=== PATIENT | female | born 1970 | race Caucasian/White ===

== ENCOUNTER 2019-04-02 07:02 | Emergency (ER) | payer BC ==
--- NOTE | 2019-04-02 07:24 | UC ---
Throat Pain/Nasal Lev HPI - HPI Summary HPI Summary: Patient presents to urgent care stating progressive the last 4 days she has had chest congestion, productive of yellow sputum. States she's been feeling febrile but has not had a documented fever. Patient denies nausea vomiting. Patient states she has a sore throat or ears feel congested. Patient has taken Motrin, but not has not taken any other medication to treat her symptoms. Patient states she feels taken she's not sleeping well related to the cough. Patient's when she lays down she feels like she gets tightness in her throat related to the cough as well as some postnasal drip. Patient's daughter has strep throat approximately 10 days ago. Patient children have been sick at home and she works at [employer] so she's also been exposed to little with sickness. Patient's medications review this visit. Patient states she is not . - History of Current Complaint Chief Complaint: UCRespiratory Stated Complaint: CONGESTION EAR PAIN SORE THROAT COUGH Time Seen by Provider: 04/02/19 07:23 Hx Obtained From: Patient Hx Last Menstrual Period: last month ?: No Severity: Moderate Pain Intensity: 5 Pain Scale Used: 0-10 Numeric - Allergies/Home Medications Allergies/Adverse Reactions: Allergies Allergy/AdvReac Type Severity Reaction Status Date / Time erythromycin base Allergy Vomiting Verified 04/02/19 07:13 Penicillins Allergy Vomiting Verified 04/02/19 07:13 Home Medications: Home Medications ALPRAZolam [Xanax] 0.5 tab PO DAILY PRN 04/02/19 [History Confirmed 04/02/19] Acetaminophen [Tylophen] 1,000 mg PO Q6HR PRN 04/02/19 [History Confirmed ] Propranolol HCl 20 mg PO BID 04/02/19 [History Confirmed 04/02/19] PMH/Surg Hx/FS Hx/Imm Hx Previously Healthy: Yes Cardiovascular History: Hypertension - Surgical History Surgical History: Yes Surgery Procedure, Year, and Place: L Knee arthroscopy 1983 September 2004 - Family History Known Family History: Positive: Hypertension - Social History Alcohol Use: Rare Substance Use Type: Prescribed Smoking Status (MU): Never Smoked Tobacco - Immunization History Most Recent Influenza Vaccination: fall 2015 Review of Systems All Other Systems Reviewed And Are Negative: Yes Constitutional: Positive: Fever, Fatigue ENT: Positive: Sore Throat, Sinus Congestion Respiratory: Positive: Cough Cardiovascular: Positive: Negative Physical Exam - Summary Physical Exam Summary: Vital Signs Reviewed: Yes A+Ox3, tired appearing, coarse cough Eyes: Conjunctiva Clear, CELESTE. EOM intact and full ENT: Hearing grossly normal right TM - obstructed by cerumen, left TM - mild fluid, turbinates boggy + PND , mmoist, uvula midline, no exudate, mild erythema Neck: Positive: Supple, no LA Respiratory: Positive: No respiratory distress, No accessory muscle use coarse cough, + end exp wheeze, no retractions Cardiovascular: RRR nl s1, s2 no m/r CBT <2 sec abd soft + BS nt/nd no guarding, no distension Musculoskeletal Exam: CLEMENTS x 4 without difficulty Strength Intact, ROM Intact Neurological: Positive: Alert, + sensation throughout Psychological: Positive: Normal Response To examiner Skin: Positive: no rash, no ecchymosis Triage Information Reviewed: Yes Vital Signs: Initial Vital Signs Temp 97.6 F 04/02/19 07:08 Pulse 60 04/02/19 07:08 Resp 18 04/02/19 07:08 BP 142/102 04/02/19 07:08 Pulse Ox 99 04/02/19 07:08 Re-Evaluation - Re-Evaluation First Eval Comment: Patient little shaky after the neb. States that her breathing feels better. She feels more open. Coughing is decreased. Lung sounds are now clear without wheezing. Spent time examined patient. Patient given water and juice and crackers and her shakiness improved. Reviewed plan of care with patient. We'll start albuterol with a spacer, prednisone 20 mg a day risks discussed, and Kelly Michel. We'll send a prescription for antibiotics and instructed patient to start if her symptoms persist over the next 24-48 hours. Secretion precautions discussed. Humidified air. Advised patient to avoid decongestants. Patient states understanding, and plan. Throat Pain/Nasal Course/Dx - Course Course Of Treatment: Patient presents to urgent care where several days progressive cough productive of yellow sputum sinus congestion postnasal drip and sore throat. Patient states she feels fatigued she's not sleeping related to cough. Patient's taken Motrin Tylenol but no other Medications. On exam vital signs are elevated blood pressure. Patient does have a history of hypertension and did not take her medicine this morning. Patient is not taking any decongestant. On exam patient right ear impacted with cerumen. Patient declined catheter irrigation to remove this. Left ear shows some mild fluid. Patient's turbinates are inflamed and boggy. Patient has had postnasal drip and a coarse sounding cough. We'll check for strep as her daughter had strep as well as given a DuoNeb and reassessed. Patient comfortable with him and plan. We'll reassess. - Differential Dx/Diagnosis Provider Diagnosis: Acute bronchitis, Upper respiratory infection Discharge ED - Sign-Out/Discharge Documenting (check all that apply): Patient Departure All imaging exams completed and their final reports reviewed: No Studies - Discharge Plan Condition: Stable Disposition: HOME Prescriptions: Albuterol HFA INHALER* [Ventolin HFA Inhaler*] 2 puff INH Q4H PRN #1 mdi PRN Reason: wheeze Benzonatate CAP* [Tessalon 100 MG CAP*] 100 mg PO TID PRN #21 cap PRN Reason: Cough DOXYcycline CAP(*) [DOXYcycline 100MG CAP(*)] 100 mg PO BID #20 cap Inhaler, Assist Devices [Aerochamber Mv] 1 each PO Q4HR #1 spacer predniSONE [Prednisone 20 MG TAB] 20 mg PO DAILY #5 tablet Patient Education Materials: Upper Respiratory Infection (ED), Acute Bronchitis (ED) Referrals: Walter Farrar MD [Primary Care Provider] - Additional Instructions: -Use your albuterol puffer - 2 puffs every 4 hours for the next 2 days - then as needed - take prednisone daily as prescribed -Stay well hydrated - avoid excess caffeine and all alcohol - eat regular, healthy meals - - humidify the air in the room where you sleep - boil water, run a hot steam shower, vaporizer, cups of water by heat register -If your symptoms persist, take antibiotics exactly as prescribed until gone - okay to take over the counter medication for your cough - it is recommended you AVOID decongestants (pseudephederine, sudafed, phenylepherine) as these can increase blood pressure -- These infections are spread by secretions - do NOT share eating or drinking utensils - clean items you share with other people such as cell phones, computer mouse, TV remote, computer tablets,etc.. Once you have been antibiotics for 2 days, change your toothbrush and your pillowcase. -Contact your doctor to arrange a follow-up appointment this week. Call your doctor, return here or go to the emergency department with any questions or concerns - Billing Disposition and Condition Condition: STABLE Disposition: Home
[2019-04-02] MEDS ORDERED: Albuterol/Ipratropium NEB.SOL* Albuterol 2.5 MG/Ipratropium 0.5 MG 3 ML INH ONE (07:31)
[2019-04-02 07:56] VITALS: BP 159/77
== END 2019-04-02 08:30 | disposition home or self-care (01) ==
LOC: UCEAST 07:02
DX: J20.9 Acute bronchitis, unspecified (principal); J06.9 Acute upper respiratory infection, unspecified; I10 Essential (primary) hypertension; H61.21 Impacted cerumen, right ear; H92.09 Otalgia, unspecified ear; Z96.652 Presence of left artificial knee joint; Z79.899 Other long term (current) drug therapy; Z88.0 Allergy status to penicillin; Z88.1 Allergy status to other antibiotic agents
CPT/HCPCS: 87651; 99212; A9270-GY; G0463